=== PATIENT | female | born 1980 | race African-American/Black ===

== ENCOUNTER 2020-04-09 08:19 | Emergency (ER) | payer BC ==
[2020-04-09 08:34] VITALS: BP 118/63; PULSE 94
[2020-04-09] MEDS ORDERED: Ketorolac 15 MG/ML SDV IM ONE (08:47)
--- NOTE | 2020-04-09 09:02 | EDM.PDOC ---
ED HPI GENERAL MEDICAL PROBLEM - General Chief Complaint: General Stated Complaint: NECK PAIN Time Seen by Provider: 04/09/20 08:29 - History of Present Illness INITIAL COMMENTS - FREE TEXT/NARRATIVE: CHIEF COMPLAINT(S): Neck pain HISTORY OF PRESENT ILLNESS: This is a 40-year-old woman without any significant past medical history who comes to the emergency department with a chief complaint of neck pain. The patient states that for approximately 4 days now she has been experiencing bilateral neck pain. She states that she woke up 4 days ago and noticed the pain in her bilateral neck. She describes the pain as achy and rated 5 out of 10. She states that the pain is worse with movement. She states that it feels like muscles are spasming. She states that this has happened before and it feels similar. She states that she usually uses icy hot, massage, and ibuprofen and it usually resolves within about a week however it seems to be continuing this time. She denies any fevers or chills. She denies any IV drug use. She denies any trouble swallowing, trouble speaking, or trouble breathing. She denies any other symptoms. She denies any head injury. REVIEW OF SYSTEMS: Constitutional: Denies fever, chills. Eyes: Denies eye pain Ears, Nose, Mouth, & Throat: Denies trouble swallowing Cardiovascular: Denies chest pain Respiratory: Denies shortness of breath, stridor Gastrointestinal: Denies Nausea, vomiting, diarrhea, hematochezia. Genitourinary: Denies hematuria MSK: Positive for bilateral neck pain Neurological: Denies blurred vision numbness, tingling, weakness Psychiatric: Denies depression PAST MEDICAL HISTORY: As per history of present illness and as reviewed below otherwise noncontributory. SURGICAL HISTORY: As per history of present illness and as reviewed below otherwise noncontributory. LMP: 3 weeks ago SOCIAL HISTORY: As per history of present illness and as reviewed below otherwise noncontributory. FAMILY HISTORY: As per history of present illness and as reviewed below othe rwise noncontributory. EXAMINATION OF ORGAN SYSTEMS/BODY AREAS: Constitutional: Blood pressure is 118/63, heart rate 94, respiratory rate 18 with an oxygen saturation 98% on room air. Temperature 36.0 General: Overall well-appearing woman who is in no acute distress Psychiatric: Appropriate mood and affect. Eyes: No scleral icterus or conjunctival erythema ENMT: Moist mucous membranes. No pharyngeal erythema no posterior pharyngeal swelling. There does not appear to be any masses on the anterior or lateral neck. No stridor. Cardiovascular: Regular, rate, and rythym. No gallops, murmurs, or rubs. Bilateral upper extremity pulses symmetric and intact. No peripheral edema. No JVD. Respiratory: Lungs clear to auscultation bilaterally. No wheezes, rales, or rhonchi. Speaking in full sentences. Gastrointestinal: Soft, non-tender, non-distended. Normoactive bowel sounds Genitourinary: No suprapubic tenderness Musculoskeletal: Decreased range of motion of the neck secondary to pain.. There is bilateral paracervical muscle spasm and tenderness. No overlying skin changes. No midline cervical tenderness. Skin: No lesions or abrasions. Neurological: Alert, GCS 15 strength and sensation grossly intact in upper and lower extremities bilaterally MEDICAL DECISION MAKING AND COURSE IN THE ED WITH INTERPRETATION/REVIEW OF DIAGNOSTIC STUDIES: This is a 40-year-old woman and without any significant past medical history who comes to the emergency department with bilateral posterior neck pain and stiffness. At this time I do believe the patient is experiencing a neck strain. We will provide the patient with Toradol IM for pain relief and I discussed the use of Robaxin at home for pain relief. Also discussed with her using alternating heating pad and ice for pain relief. She is to follow-up with her primary care physician. She was given strict return precautions. She was amenable discharge at this time and had no further questions. DISPOSITION: The patient was discharged home in stable condition. The patient will follow up with PCP within 1 week CONDITION: Fair PROCEDURES: None FINAL IMPRESSION(S)/DIAGNOSES: 1. Acute bilateral paracervical muscle strain/tenderness Albert Tamayo M.D. 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 Pain Score (Numeric/FACES): 10 - Related Data Allergies Allergy/AdvReac Type Severity Reaction Status Date / Time No Known Allergies Allergy Verified 04/09/20 08:34 Home Meds: Home Meds Ibuprofen 800 mg PO BID PRN 12/20/15 [History] methocarbamoL [Robaxin-750] 1,500 mg PO TID #42 tablet 04/09/20 [Rx] Past Medical History - Past Health History Medical/Surgical History: Denies Medical/Surgical History Gastrointestinal History: Reports: Pancreatitis, Other (See Below) Other Gastrointestinal History: H.pylori (+) SVP OPERATIONS History: Reports: Other (See Below) Other SVP OPERATIONS History: "irregular menstruation" - Past Surgical History GI Surgical History: Reports: None Female Surgical History: Reports: Cervical Cryotherapy Other Female Surgeries/Procedures: 12/15/15 Social & Family History - Family History Family Medical History: No Pertinent Family History ED ROS GENERAL - Review of Systems Review Of Systems: See Below ED EXAM, GENERAL - Physical Exam Exam: See Below Course - Vital Signs Last Recorded V/S: Last Vital Signs Temp 36.0 C L 04/09/20 08:31 Pulse 94 04/09/20 08:31 Resp 18 04/09/20 08:31 BP 118/63 04/09/20 08:31 Pulse Ox 98 04/09/20 08:31 - Orders/Labs/Meds Meds: Medications Discontinued Medications Generic Name Dose Route Start Last Admin Trade Name Freq PRN Reason Stop Dose Admin Ketorolac Tromethamine 15 mg 04/09/20 08:47 04/09/20 09:11 Toradol IM 04/09/20 08:48 15 mg ONETIME ONE Administration Departure - Departure Time of Disposition: 09:00 Disposition: Home, Self-Care 01 Condition: Fair Clinical Impression: Neck muscle strain Qualifiers: Encounter type: initial encounter Qualified Code(s): S16.1XXA - Strain of muscle, fascia and tendon at neck level, initial encounter - Discharge Information *PRESCRIPTION DRUG MONITORING PROGRAM REVIEWED*: No *COPY OF PRESCRIPTION DRUG MONITORING REPORT IN PATIENT BRIAN: No Prescriptions: methocarbamoL [Robaxin-750] 1,500 mg PO TID #42 tablet Instructions: Cervical Sprain Referrals: Henrietta Daniel MD [Primary Care Provider] - Forms: ED Department Discharge Additional Instructions: The patient is informed of any results of their evaluation and diagnostic workup and all questions are answered. They are given discharge instructions and return precautions. The patient is stable for discharge. The patient states they understand and agree with the plan and that they will return if their symptoms get worse or if they have any new concerns. The following information is given to patients seen in the emergency department who are being discharged to home. This information is to outline your options for follow-up care. We provide all patients seen in our emergency department with a follow-up referral. The need for follow-up, as well as the timing and circumstances, are variable depending upon the specifics of your emergency department visit. If you don't have a primary care physician on staff, we will provide you with a referral. We always advise you to contact your personal physician following an emergency department visit to inform them of the circumstance of the visit and for follow-up with them and/or the need for any referrals to a consulting specialist. The emergency department will also refer you to a specialist when appropriate. This referral assures that you have the opportunity for follow-up care with a specialist. All of these measure are taken in an effort to provide you with optimal care, which includes your follow-up. Under all circumstances we always encourage you to contact your private physician who remains a resource for coordinating your care. When calling for follow-up care, please make the office aware that this follow-up is from your recent emergency room visit. If for any reason you are refused follow-up, please contact the [facility] Emergency Department at and asked to speak to the emergency department charge nurse. Your evaluated today on emergency basis. I do believe you have are experiencing a neck strain. Continue to use ibuprofen 3 times a day for pain. Use ice and heat alternating to the area 4 times a day or as many times as time allows. Please follow-up with your primary care physician within 2 to 3 days. Return to the emergency department for any new or worsening symptoms such as blurry vision, worsening headache, fever. [facility] [address] [place] [id number] [facility] [address] [place] [id number] Sepsis Event Note (ED) - Evaluation Sepsis Screening Result: No Definite Risk - Focused Exam Vital Signs: Vital Signs Temp Pulse Resp BP Pulse Ox 04/09/20 08:31 36.0 C L 94 18 118/63 98
== END 2020-04-09 09:35 | disposition home or self-care (01) ==
LOC: MW.ED 08:19
DX: S16.1XXA Strain of muscle, fascia and tendon at neck level, initial encounter (principal); X58.XXXA Exposure to other specified factors, initial encounter
CPT/HCPCS: 96372; 99283; J1885; 99282

== ENCOUNTER 2021-02-04 14:03 | Emergency (ER) | payer BC ==
--- NOTE | 2021-02-04 14:23 | EDM.PDOC ---
ED HPI GENERAL MEDICAL PROBLEM - General Chief Complaint: Abdominal Pain Stated Complaint: STOMACH PAIN Time Seen by Provider: 02/04/21 14:21 - History of Present Illness INITIAL COMMENTS - FREE TEXT/NARRATIVE: History of present illness: [] This patient with a history of fibroids who has a hysteroscopy scheduled for tomorrow came in because he has severe abdominal pain in the epigastrium starting 31 January and progressively getting worse. It radiates to her left flank. She is not on her menstrual period now. She says she has the pain every 3 or 4 weeks unrelated to the time of menses. The patient does not drink alc ohol and has never had a gallbladder attack ulcer or pancreatitis. Preoperative labs reviewed in the CBC and chemistries were essentially normal. A hepatic panel was not done nor do I see a urinalysis. Review of systems: As per history of present illness and below otherwise all systems reviewed and negative. Past medical history: As per history of present illness and as reviewed below otherwise noncontributory. Surgical history: As per history of present illness and as reviewed below otherwise noncontributory. Social history: No reported history of drug or alcohol abuse. Family history: As per history of present illness and as reviewed below otherwise noncontributory. Physical exam: Constitutional - well developed, well-nourished and in no acute distress HEENT - normocephalic, no evidence of trauma - external nose and mouth normal - no mass in neck and no JVD - mucosae moist EYES - full EOM, PERRL, no icterus - no evidence of inflammation, injection, or drainage Respiratory - no respiratory distress, equal bilateral expansion, lungs clear to auscultation and no abnormal lung sounds Cardiovascular - Regular Rhythm with S1 and S2 appreciated and no murmur, gallop or rub. GI -tender epigastrium. Abdomen soft without distension or organomegaly - normal bowel sounds - no guard or rebound Musculoskeletal no gross deformity of long bones or joints - no tenderness, swelling or edema Neurologic - Alert and oriented times four - CN II-XII grossly intact - motor sensory and coordination symmetrically normal Psychiatric - appropriate mood and affect with normal thought content Hematologic - No petechiae or purpura - mucosa appropriate color and sclera not pale - normal nail bed color and refill Integument - no rash or evidence of trauma - normal turgor Diagnostics: [] Therapeutics: [] Impression: [] Plan: [] Definitive disposition and diagnosis as appropriate pending reevaluation and review of above. left flank Pain Score (Numeric/FACES): 10 - Related Data Allergies Allergy/AdvReac Type Severity Reaction Status Date / Time No Known Allergies Allergy Verified 02/04/21 14:14 Home Meds: Home Meds Ibuprofen 800 mg PO BID PRN 12/20/15 [History] Baclofen 10 mg PO TID PRN 02/01/21 [History] Lidocaine 5% [Lidoderm 5%] 1 patch TOP DAILY PRN 02/01/21 [History] Multivitamin with Minerals [Multiple Vitamin] 1 tab PO DAILY 02/01/21 [History] Past Medical History - Past Health History Medical/Surgical History: Denies Medical/Surgical History HEENT History: Reports: Other (See Below) Other HEENT History: wears glasses Cardiovascular History: Reports: None Respiratory History: Reports: None Gastrointestinal History: Reports: Helicobacter Pylori Other Gastrointestinal History: some heartburn- takes TUMS Genitourinary History: Reports: None 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, 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 Other CATTLE DIPPER History: "irregular menstruation" Musculoskeletal History: Reports: Neck Pain, Chronic Other Musculoskeletal History: hx of cervical spine sprain Neurological History: Reports: None Psychiatric History: Reports: None Endocrine/Metabolic History: Reports: None Oncologic (Cancer) History: Reports: None Dermatologic History: Reports: None - Past Surgical History Head Surgeries/Procedures: Reports: None Cardiovascular Surgical History: Reports: None Respiratory Surgical History: Reports: None GI Surgical History: Reports: None Female Surgical History: Reports: Cervical Cryotherapy Other Female Surgeries/Procedures: 12/15/15 Endocrine Surgical History: Reports: None Neurological Surgical History: Reports: None Musculoskeletal Surgical History: Reports: None Oncologic Surgical History: Reports: None Dermatological Surgical History: Reports: None Social & Family History - Family History Family Medical History: No Pertinent Family History - Tobacco Use Tobacco Use Status *Q: Never Tobacco User Second Hand Smoke Exposure: No - Recreational Drug Use Recreational Drug Use: No ED ROS GENERAL - Review of Systems Review Of Systems: Comprehensive ROS is negative, except as noted in HPI. ED EXAM, GENERAL - Physical Exam Exam: See Below Free Text/Narrative:: Physical exam is in the HPI Course - Vital Signs Text/Narrative:: 1608 hrs. it was my impression after looking at the lab and evaluating the patient that her pain is probably referred pain from her pelvic complications. Discussed with Dr. Saleh and she agreed to go forth with a hysteroscopy in the morning. Last Recorded V/S: Last Vital Signs Temp 36.7 C 02/04/21 16:01 Pulse 62 02/04/21 16:01 Resp 18 02/04/21 16:01 BP 116/56 L 02/04/21 16:01 Pulse Ox 98 02/04/21 16:01 - Orders/Labs/Meds Orders: Active Orders 24 hr Category Date Time Status Sodium Chloride 0.9% [Saline Flush] Med 02/04/21 14:26 Active 10 ml FLUSH ASDIRECTED PRN Sodium Chloride 0.9% [Saline Flush] Med 02/04/21 14:26 Active 2.5 ml FLUSH ASDIRECTED PRN Saline Lock Insert [OM.PC] Stat Oth 02/04/21 14:26 Ordered Medication Orders Sodium Chloride (Sodium Chloride 0.9% 10 Ml Syringe) 10 ml FLUSH ASDIRECTED PRN PRN Reason: Keep Vein Open Last Admin: 02/04/21 15:00 Dose: 10 ml Documented by: JOIE Sodium Chloride (Sodium Chloride 0.9% 2.5 Ml Syringe) 2.5 ml FLUSH ASDIRECTED PRN PRN Reason: Keep Vein Open Last Admin: 02/04/21 15:00 Dose: 2.5 ml Documented by: JOIE Labs: Laboratory Tests 02/04/21 02/04/21 Range/Units 11:35 14:50 Total Bilirubin 0.4 (0.2-1.0) mg/dL Direct Bilirubin 0.10 (0.0-0.5) mg/dL Indirect Bilirubin 0.30 AST 24 (15-37) IU/L ALT 32 (14-63) IU/L Alkaline Phosphatase 88 (46-116) U/L Total Protein 7.8 (6.4-8.2) g/dL Albumin 3.7 (3.4-5.0) g/dL Globulin 4.1 H (2.6-4.0) g/dL Albumin/Globulin Ratio 0.9 (0.9-1.6) Urine Color YELLOW Urine Appearance CLEAR Urine pH 7.0 (5.0-8.0) Ur Specific [place] 1.020 (1.001-1.035) Urine Protein NEGATIVE (NEGATIVE) mg/dL Urine Glucose (UA) NEGATIVE (NEGATIVE) mg/dL Urine Ketones NEGATIVE (NEGATIVE) mg/dL Urine Occult Blood NEGATIVE (NEGATIVE) Urine Nitrite NEGATIVE (NEGATIVE) Urine Bilirubin NEGATIVE (NEGATIVE) Urine Urobilinogen 0.2 (<2.0) EU/dL Ur Leukocyte Esterase NEGATIVE (NEGATIVE) Meds: Medications Generic Name Dose Route Start Last Admin Trade Name Freq PRN Reason Stop Dose Admin Sodium Chloride 10 ml 02/04/21 14:02/04/21 15:00 Sodium Chloride 0.9% 10 Ml Syringe FLUSH 10 ml ASDIRECTED PRN Administration Keep Vein Open Sodium Chloride 2.5 ml 02/04/21 14:02/04/21 15:00 Sodium Chloride 0.9% 2.5 Ml Syringe FLUSH 2.5 ml ASDIRECTED PRN Administration Keep Vein Open Departure - Departure Time of Disposition: 16:08 Disposition: Home, Self-Care 01 Condition: Good Clinical Impression: Abdominal pain - Discharge Information Instructions: Abdominal Pain, Adult, [id number], Uterine Fibroids, [id number] Referrals: PCP,None [Primary Care Provider] - Forms: ED Department Discharge Additional Instructions: Follow the instructions you were provided to have the surgery tomorrow so that y ou can then see if that relieves her pain. [facility] [address] [place] [id number] [facility] [address] [place] [address] The following information is given to patients seen in the emergency department who are being discharged to home. This information is to outline your options for follow-up care. We provide all patients seen in our emergency department with a follow-up referral. The need for follow-up, as well as the timing and circumstances, are variable depending upon the specifics of your emergency department visit. If you don't have a primary care physician on staff, we will provide you with a referral. We always advise you to contact your personal physician following an emergency department visit to inform them of the circumstance of the visit and for follow-up with them and/or the need for any referrals to a consulting specialist. The emergency department will also refer you to a specialist when appropriate. This referral assures that you have the opportunity for follow-up care with a specialist. All of these measure are taken in an effort to provide you with optimal care, which includes your follow-up. Under all circumstances we always encourage you to contact your private physician who remains a resource for coordinating your care. When calling for follow-up care, please make the office aware that this follow-up is from your recent emergency room visit. If for any reason you are refused follow-up, please contact the [facility] Emergency Department at and asked to speak to the emergency department charge nurse. Sepsis Event Note (ED) - Evaluation Sepsis Screening Result: No Definite Risk - Focused Exam Vital Signs: Vital Signs Temp Pulse Resp BP Pulse Ox 02/04/21 16:01 36.7 C 62 18 116/56 L 98 02/04/21 15:00 18 132/71 98 02/04/21 14:11 36.2 C 96 18 112/71 99 - My Orders Last 24 Hours: My Active Orders 02/04/21 14:26 Sodium Chloride 0.9% [Saline Flush] 10 ml FLUSH ASDIRECTED PRN Sodium Chloride 0.9% [Saline Flush] 2.5 ml FLUSH ASDIRECTED PRN Saline Lock Insert [OM.PC] Stat - Assessment/Plan Last 24 Hours: My Active Orders 02/04/21 14:26 Sodium Chloride 0.9% [Saline Flush] 10 ml FLUSH ASDIRECTED PRN Sodium Chloride 0.9% [Saline Flush] 2.5 ml FLUSH ASDIRECTED PRN Saline Lock Insert [OM.PC] Stat
[2021-02-04] MEDS ORDERED: Sodium Chloride 0.9% 10 ML Syringe FLUSH PRN (14:26)
[2021-02-04] MEDS ORDERED: Sodium Chloride 0.9% 2.5 ML Syringe FLUSH PRN (14:26)
[2021-02-04 14:43] LABS: BILIRUBIN INDIRECT 0.3
[2021-02-04 16:33] VITALS: BP 110/59; PULSE 78
== END 2021-02-04 16:33 | disposition home or self-care (01) ==
LOC: MW.ED 14:03
DX: R10.13 Epigastric pain (principal)
CPT/HCPCS: 36415; 80076; 81003; 99284

== ENCOUNTER 2021-02-05 07:32 | Day surgery (SDC) | payer BC, OTHER ==
[2021-02-04 14:01] LABS: BLOOD UREA NITROGEN,BUN 12 mg/dL (7.0-18.0); CARBON DIOXIDE,CO2 27.4 mmol/L (21.0-32.0); CHLORIDE,CL 102 mmol/L (98-107); GLUCOSE RANDOM 97 mg/dL (74-106); POTASSIUM,K 4.6 mmol/L (3.5-5.1); SODIUM,NA 141 mmol/L (136-145)
[~2021-02-05 07:32] MED LIST: Albuterol 0.083% 2.5 MG/3 ML Neb Soln NEB PRN; HYDROmorphone 1 MG/ML Syringe IVPUSH PRN; Metoclopramide 10 MG/2 ML SDV IVPUSH PRN; Morphine 2 MG/ML SYRINGE IVPUSH PRN; Naloxone 0.4 MG/ML SDV IVPUSH PRN; Ondansetron 4 MG/2 ML SDV IVPUSH PRN; fentaNYL 100 MCG/2 ML SDV IVPUSH PRN
--- NOTE | 2021-02-05 07:41 | PCM.PREANE ---
Preanesthetic Assessment - Anesthesia/Transfusion/Family Hx Anesthesia History: Prior Anesthesia Without Reaction Transfusion History: No Prior Transfusion(s) - Review of Systems General: No Symptoms Pulmonary: No Symptoms Cardiovascular: No Symptoms Gastrointestinal: No Symptoms Neurological: No Symptoms Other: Reports: None - Physical Assessment NPO Status Date: 02/05/21 NPO Status Time: 00:00 Height: 5 ft 3.75 in Weight: 150 lb ASA Class: 2 Mental Status: Alert & Oriented x3 Airway Class: Mallampati = 2 Dentition: Reports: Normal Dentition Thyro-Mental Finger Breadths: 3 Mouth Opening Finger Breadths: 3 ROM/Head Extension: Full Lungs: Clear to Auscultation, Normal Respiratory Effort Cardiovascular: Regular Rate, Regular Rhythm - Lab Values: Laboratory Last Values WBC 4.67 K/uL (4.0-11.0) 02/04/21 11:35 RBC 4.74 M/uL (4.30-5.90) 02/04/21 11:35 Hgb 13.0 g/dL (12.0-16.0) 02/04/21 11:35 Hct 36.7 % (36.0-46.0) 02/04/21 11:35 MCV 77.4 fL (80.0-98.0) L 02/04/21 11:35 MCH 27.4 pg (27.0-32.0) 02/04/21 11:35 MCHC 35.4 g/dL (31.0-37.0) 02/04/21 11:35 RDW Std Deviation 45.1 fl (28.0-62.0) 02/04/21 11:35 RDW Coeff of Basil 16 % (11.0-15.0) H 02/04/21 11:35 Plt Count 351 K/uL (150-400) 02/04/21 11:35 MPV 11.10 fL (7.40-12.00) 02/04/21 11:35 Sodium 141 mmol/L (136-145) 02/04/21 11:35 Potassium 4.6 mmol/L (3.5-5.1) 02/04/21 11:35 Chloride 102 mmol/L (98-107) 02/04/21 11:35 Carbon Dioxide 27.4 mmol/L (21.0-32.0) 02/04/21 11:35 BUN 12 mg/dL (7.0-18.0) 02/04/21 11:35 Creatinine 1.0 mg/dL (0.6-1.0) 02/04/21 11:35 Est Cr Clr Drug Dosing 64.54 mL/min 02/04/21 11:35 Estimated GFR (MDRD) > 60.0 ml/min 02/04/21 11:35 Glucose 97 mg/dL (74-106) 02/04/21 11:35 Calcium 9.3 mg/dL (8.5-10.1) 02/04/21 11:35 HCG, Quant < 1.0 mIU/mL 02/04/21 11:35 Blood Type B POSITIVE 02/04/21 11:35 Antibody Screen NEGATIVE 02/04/21 11:35 - Allergies Allergies/Adverse Reactions: Allergies Allergy/AdvReac Type Severity Reaction Status Date / Time No Known Allergies Allergy Verified 02/04/21 14:14 - Acknowledgements Anesthesia Type Planned: General Anesthesia Pt an Appropriate Candidate for the Planned Anesthesia: Yes Alternatives and Risks of Anesthesia Discussed w Pt/Guardian: Yes Pt/Guardian Understands and Agrees with Anesthesia Plan: Yes PreAnesthesia Questionnaire - Past Health History Medical/Surgical History: Denies Medical/Surgical History HEENT History: Reports: Other (See Below) Other HEENT History: wears glasses Cardiovascular History: Reports: None Respiratory History: Reports: None Gastrointestinal History: Reports: Helicobacter Pylori Other Gastrointestinal History: some heartburn- takes TUMS Genitourinary History: Reports: None 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, 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 Other OB/BYN History: "irregular menstruation" Musculoskeletal History: Reports: Neck Pain, Chronic Other Musculoskeletal History: hx of cervical spine sprain Neurological History: Reports: None Psychiatric History: Reports: None Endocrine/Metabolic History: Reports: None Oncologic (Cancer) History: Reports: None Dermatologic History: Reports: None - Past Surgical History Head Surgeries/Procedures: Reports: None Cardiovascular Surgical History: Reports: None Respiratory Surgical History: Reports: None GI Surgical History: Reports: None Female Surgical History: Reports: Cervical Cryotherapy Other Female Surgeries/Procedures: 12/15/15 Endocrine Surgical History: Reports: None Neurological Surgical History: Reports: None Musculoskeletal Surgical History: Reports: None Oncologic Surgical History: Reports: None Dermatological Surgical History: Reports: None - SUBSTANCE USE Tobacco Use Status *Q: Never Tobacco User Recreational Drug Use History: No - HOME MEDS Home Medications: Home Meds Ibuprofen 800 mg PO BID PRN 12/20/15 [History] Baclofen 10 mg PO TID PRN 02/01/21 [History] Lidocaine 5% [Lidoderm 5%] 1 patch TOP DAILY PRN 02/01/21 [History] Multivitamin with Minerals [Multiple Vitamin] 1 tab PO DAILY 02/01/21 [History] - CURRENT (IN HOUSE) MEDS Current Meds: Current Medications Albuterol (Albuterol 0.083% 2.5 Mg/3 Ml Neb Soln) 2.5 mg NEB ONETIME PRN PRN Reason: Wheezing Droperidol (Droperidol 5 Mg/2 Ml Sdv) 0.625 mg IVPUSH ONETIME PRN PRN Reason: Nausea/Vomiting Fentanyl (Fentanyl 100 Mcg/2 Ml Sdv) 50 mcg IVPUSH Q5M PRN PRN Reason: Pain (mild 1-3) Hydromorphone HCl (Hydromorphone 1 Mg/Ml Syringe) 1 mg IVPUSH Q10M PRN PRN Reason: Pain (moderate 4-6) Metoclopramide HCl (Metoclopramide 10 Mg/2 Ml Sdv) 10 mg IVPUSH ONETIME PRN PRN Reason: Nausea/Vomiting Morphine Sulfate (Morphine 2 Mg/Ml Syringe) 2 mg IVPUSH Q10M PRN PRN Reason: Pain (severe 7-10) Naloxone HCl (Naloxone 0.4 Mg/Ml Sdv) 0.1 mg IVPUSH ASDIRECTED PRN PRN Reason: Respiratory Depression Ondansetron HCl (Ondansetron 4 Mg/2 Ml Sdv) 4 mg IVPUSH ONETIME PRN PRN Reason: Nausea/Vomiting
[2021-02-05] MEDS ORDERED: Sodium Chloride 0.9% 10 ML SDV IV PRN (08:01)
[2021-02-05] MEDS ORDERED: Sodium Chloride 0.9% 2.5 ML Syringe FLUSH PRN (08:01)
[2021-02-05] MEDS ORDERED: Sodium Chloride 0.9% 10 ML Syringe FLUSH PRN (08:01)
[2021-02-05] MEDS ORDERED: Lactated Ringers 1,000 ML IV SCH (08:30)
[2021-02-05] MEDS ORDERED: Dexamethasone 4 MG/ML 5 ML MDV ONE (08:47)
[2021-02-05] MEDS ORDERED: Ondansetron 4 MG/2 ML SDV ONE (08:47)
[2021-02-05] MEDS ORDERED: Propofol 200 MG/20 ML SDV ONE (08:48)
[2021-02-05] MEDS ORDERED: fentaNYL 100 MCG/2 ML SDV ONE (08:48)
[2021-02-05] MEDS ORDERED: Ketorolac 30 MG/ML SDV ONE (09:26)
--- NOTE | 2021-02-05 09:42 | PCM.OPNOTE ---
- General Post-Op/Procedure Note Date of Surgery/Procedure: 02/05/21 Operative Procedure(s): Operative hysteroscopy with myomectomy x 2. D&C Findings: Two intracavitary lesions, one fundal midline, the other mid fundus right side Pre Op Diagnosis: Abnormal uterine bleeding. Uterine fibroids Post-Op Diagnosis: Same Anesthesia Technique: General LMA Primary Surgeon: Mona Saleh Fluid Replacement, Intraop: 400 EBL in mLs: 5 Complications: none known Condition: Good Free Text/Narrative:: Dictation [id number]
--- NOTE | 2021-02-05 09:43 | PCM.POSTAN ---
POST ANESTHESIA ASSESSMENT - MENTAL STATUS Mental Status: Alert, Oriented - VITAL SIGNS Vital Signs: Last Vital Signs Temp 97.0 F 02/05/21 07:35 Pulse 84 02/05/21 07:35 Resp 15 02/05/21 07:35 BP 123/77 02/05/21 07:35 Pulse Ox 98 02/05/21 07:35 - RESPIRATORY Respiratory Status: Respiratory Rate WNL, Airway Patent, O2 Saturation Stable - CARDIOVASCULAR CV Status: Pulse Rate WNL, Blood Pressure Stable - GASTROINTESTINAL GI Status: No Symptoms - POST OP HYDRATION Hydration Status: Adequate & Stable
--- NOTE | 2021-02-05 09:43 | PCM48HPAN ---
Post Anesthesia Note - EVALUATION WITHIN 48HRS OF ANESTHETIC Vital Signs in Normal Range: Yes Patient Participated in Evaluation: Yes Respiratory Function Stable: Yes Airway Patent: Yes Cardiovascular Function Stable: Yes Hydration Status Stable: Yes Pain Control Satisfactory: Yes Nausea and Vomiting Control Satisfactory: Yes Mental Status Recovered: Yes Vital Signs: Last Vital Signs Temp 97.0 F 02/05/21 07:35 Pulse 84 02/05/21 07:35 Resp 15 02/05/21 07:35 BP 123/77 02/05/21 07:35 Pulse Ox 98 02/05/21 07:35
[2021-02-05 11:01] VITALS: BP 118/64; PULSE 64
--- NOTE | 2021-02-05 16:24 | OR ---
SURGEON: Mona Saleh M.D. DATE OF PROCEDURE: 02/05/2021 PREOPERATIVE DIAGNOSES: 1. Abnormal uterine bleeding. 2. Uterine fibroids. POSTOPERATIVE DIAGNOSES: 1. Abnormal uterine bleeding. 2. Uterine fibroids. PROCEDURES: 1. Operative hysteroscopy with myomectomy x2. 2. Dilation and curettage. PRIMARY SURGEON: Mona Saleh MD ANESTHESIA: General LMA. ESTIMATED BLOOD LOSS: 5 mL. COMPLICATIONS: None known. FLUIDS: 400 mL of crystalloid. DISPOSITION: The patient to PACU, stable. FLUID DEFICIT: 570 mL of saline. PROCEDURE DETAILS: Robert is a 40-year-old G0 who presents today for scheduled hysteroscopy given her abnormal uterine bleeding and known uterine fibroids. It is suspected that she has most likely an endometrial lesion. Risks of procedure have been discussed, and proper consent obtained. The patient was taken to the operating room, underwent general LMA in dorsal spine position, was then placed in modified dorsal lithotomy position, was prepped and draped in the usual sterile fashion. SCDs to lower extremity. Bladder was drained. Time-out was performed. Speculum was introduced in the vagina. Anterior lip of cervix was grasped with Allis clamps. The cervix was gently dilated to 6 mm. The MyoSure scope was now introduced using normal saline as distention media. I was able to visualize the uterine cavity. There were 2 endometrial lesions noted, one was at the fundus midline and the other was right-sided mid fundal. Therefore, the MyoSure resectoscope was gently introduced, and the fundal lesion was resected followed by the right mid fundal lesion. Photographs taken. After felt that the lesions were appropriately removed from the cavity, the cavity now appears normal. The MyoSure was now removed from the uterine cavity following along endocervical canal, through the cervix, and no other lesions were visualized. Gentle curettage was now performed. Specimens to Pathology. All instruments removed from the vagina and hemostasis evident. Sponge and instrument counts were correct x2. Fluid deficit was 570 mL at the end of the case. JOCELYNN / DENISE /[id number]
== END 2021-02-05 11:30 | disposition home or self-care (01) ==
LOC: MW.SDS 07:32
PROVIDERS: ATTEND Obstetrics & Gynecology
DX: D25.0 Submucous leiomyoma of uterus (principal); Z79.899 Other long term (current) drug therapy; Z98.890 Other specified postprocedural states
CPT/HCPCS: 36415; 58561; 80048; 84702; 85027; 86850; 86900; 86901; J0131; J1100; J1885; J2405; J2704; J3010; J7120; 00952; 88305

== ENCOUNTER 2021-08-27 08:12 | Day surgery (SDC) | payer BC ==
[~2021-08-27 08:12] MED LIST changes: -Albuterol 0.083% 2.5 MG/3 ML Neb Soln NEB PRN; -HYDROmorphone 1 MG/ML Syringe IVPUSH PRN; +Lactated Ringers 1,000 ML IV SCH; +Lidocaine 2% 100 MG/5 ML Syringe ONE; -Metoclopramide 10 MG/2 ML SDV IVPUSH PRN; -Morphine 2 MG/ML SYRINGE IVPUSH PRN; -Naloxone 0.4 MG/ML SDV IVPUSH PRN; -Ondansetron 4 MG/2 ML SDV IVPUSH PRN; +Ondansetron 4 MG/2 ML SDV ONE; +Propofol 200 MG/20 ML SDV ONE; -fentaNYL 100 MCG/2 ML SDV IVPUSH PRN; +fentaNYL 100 MCG/2 ML SDV ONE
[2021-08-27 11:22] VITALS: BP 113/64; PULSE 63
== END 2021-08-27 10:35 | disposition home or self-care (01) ==
LOC: MW.SDS 08:12
PROVIDERS: ATTEND Surgery
DX: K31.89 Other diseases of stomach and duodenum (principal); K59.00 Constipation, unspecified; G89.29 Other chronic pain; Z79.899 Other long term (current) drug therapy; Z98.890 Other specified postprocedural states
CPT/HCPCS: 43239; 81025; J2405; J2704; J3010; J7120; 00731

== ENCOUNTER 2021-11-29 10:18 | Emergency (ER) | payer BC ==
[2021-11-29] MEDS ORDERED: Sodium Chloride 0.9% 10 ML Syringe FLUSH PRN (10:28)
[2021-11-29] MEDS ORDERED: Sodium Chloride 0.9% 2.5 ML Syringe FLUSH PRN (10:28)
[2021-11-29] MEDS ORDERED: Ondansetron 4 MG/2 ML SDV IVPUSH ONE (11:00)
[2021-11-29] MEDS ORDERED: Morphine 4 MG/ML VIAL IVPUSH ONE (11:00)
[2021-11-29 11:56] LABS: CARBON DIOXIDE,CO2 26.3 mmol/L (21.0-32.0); POTASSIUM,K 4.2 mmol/L (3.5-5.1)
[2021-11-29] MEDS ORDERED: Magnesium Citrate Solution 296 ML Bottle PO ONE (14:04)
[2021-11-29 14:30] VITALS: BP 112/70; PULSE 88
== END 2021-11-29 14:30 | disposition home or self-care (01) ==
LOC: MW.ED 10:18
DX: K59.00 Constipation, unspecified (principal); K21.9 Gastro-esophageal reflux disease without esophagitis; Z79.899 Other long term (current) drug therapy
CPT/HCPCS: 36415; 74176; 80053; 81003; 83690; 84703; 85025; 96374; 96375; 99284; A9270; J2270; J2405; J3490

== ENCOUNTER 2021-12-27 10:00 | Emergency (ER) | payer BC ==
[2021-12-27] MEDS ORDERED: Sodium Chloride 0.9% 10 ML Syringe FLUSH PRN (11:55)
[2021-12-27] MEDS ORDERED: Sodium Chloride 0.9% 2.5 ML Syringe FLUSH PRN (11:55)
[2021-12-27] MEDS ORDERED: Morphine 4 MG/ML VIAL IVPUSH ONE (12:40)
[2021-12-27] MEDS ORDERED: Ondansetron 4 MG/2 ML SDV IVPUSH ONE (12:40)
[2021-12-27 12:50] LABS: CARBON DIOXIDE,CO2 28.8 mmol/L (21.0-32.0); POTASSIUM,K 4.3 mmol/L (3.5-5.1)
[2021-12-27 15:45] VITALS: BP 115/73; PULSE 66
== END 2021-12-27 15:44 | disposition home or self-care (01) ==
LOC: MW.ED 10:00
DX: U07.1 COVID-19 (principal); N83.202 Unspecified ovarian cyst, left side
CPT/HCPCS: 36415; 76830; 80053; 81003; 83690; 84703; 85025; 87635; 96374; 96375; 99284; J2270; J2405; J3490; U0002

== ENCOUNTER 2021-12-29 10:37 | Emergency (ER) | payer BC ==
[2021-12-29] MEDS ORDERED: Sodium Chloride 0.9% 1,000 ML IV ONE (13:08)
[2021-12-29] MEDS ORDERED: HYDROmorphone 1 MG/ML Syringe IVPUSH ONE (13:08)
[2021-12-29] MEDS ORDERED: Ondansetron 4 MG/2 ML SDV IVPUSH ONE (13:08)
[2021-12-29 14:04] LABS: CARBON DIOXIDE,CO2 28.9 mmol/L (21.0-32.0); POTASSIUM,K 3.9 mmol/L (3.5-5.1)
[2021-12-29 16:54] LABS: C. TRACHOMATIS BY PCR NOT DETECTED; N. GONORRHOEAE BY PCR NOT DETECTED
[2021-12-29 21:11] VITALS: BP 108/71; PULSE 63
== END 2021-12-29 16:40 | disposition home or self-care (01) ==
LOC: MW.ED 10:37
DX: N83.202 Unspecified ovarian cyst, left side (principal)
CPT/HCPCS: 36415; 76830; 80053; 83690; 85025; 87480; 87491; 87510; 87591; 87660; 96361; 96374; 96375; 99284; J1170; J2405; J7030; 99283

== ENCOUNTER 2022-09-13 13:11 | Emergency (ER) | payer BC ==
[2022-09-13 13:46] VITALS: BP 113/68; PULSE 82
== END 2022-09-13 16:33 | disposition left against medical advice (07) ==
LOC: MW.ED 13:11
DX: Z53.21 Procedure and treatment not carried out due to patient leaving prior to being seen by health care provider (principal)

== ENCOUNTER 2023-05-19 08:37 | Emergency (ER) | payer BC ==
[2023-05-19] MEDS ORDERED: Ondansetron 4 MG/2 ML SDV IVPUSH ONE (09:04)
[2023-05-19] MEDS ORDERED: Ketorolac 30 MG/ML SDV IVPUSH ONE (09:04)
[2023-05-19] MEDS ORDERED: Sodium Chloride 0.9% 10 ML Syringe FLUSH PRN (09:04)
[2023-05-19] MEDS ORDERED: Sodium Chloride 0.9% 1,000 ML IV ONE (09:04)
[2023-05-19] MEDS ORDERED: Sodium Chloride 0.9% 2.5 ML Syringe FLUSH PRN (09:04)
[2023-05-19 09:17] LABS: APPEARANCE,URINE CLEAR; BILIRUBIN,URINE NEGATIVE (NEGATIVE); COLOR,URINE YELLOW; GLUCOSE,URINE NEGATIVE (NEGATIVE); KETONES,URINE NEGATIVE (NEGATIVE); LEUKOCYTE ESTERASE,URINE NEGATIVE (NEGATIVE); NITRITE,URINE NEGATIVE (NEGATIVE); OCCULT BLOOD,URINE NEGATIVE (NEGATIVE); PH,URINE 5.5 (5.0-8.0); PROTEIN,URINE NEGATIVE (NEGATIVE); UROBILINOGEN,URINE 0.2 EU/dL (<2.0)
[2023-05-19 09:48] LABS: BASOPHILS ABSOLUTE AUTO 0.01 K/uL (0.00-0.20); BASOPHILS PERCENT AUTO 0.2 % (0.0-1.0); EOSINOPHILS ABSOLUTE AUTO 0.04 K/uL (0.00-0.45); EOSINOPHILS PERCENT AUTO 0.6 % (0.0-6.0); HEMATOCRIT 36.4 % (37.0-47.0); HEMOGLOBIN 12.9 g/dL (12.0-16.0); IMMATURE GRAN ABSOLUTE AUTO 0.01 K/uL (0.00-0.05); IMMATURE GRAN PERCENT AUTO 0.2 % (0.0-0.4); LYMPHOCYTES ABSOLUTE AUTO 1.82 K/uL (1.00-4.80); LYMPHOCYTES PERCENT AUTO 29.4 % (24.0-44.0); MEAN CORPUSCULAR HEMOGLOBIN 28.1 pg (28.0-32.0); MEAN CORPUSCULAR HGB CONC 35.4 g/dL (32.0-36.0); MEAN CORPUSCULAR VOLUME 79.3 fL (83.0-99.0); MEAN PLATELET VOLUME 11.1 fL (9.4-12.3); MONOCYTES PERCENT AUTO 9.7 % (0.0-8.0); NEUTROPHILS ABSOLUTE AUTO 3.72 K/uL (1.80-7.70); NEUTROPHILS PERCENT AUTO 59.9 % (41.0-71.0); PLATELET COUNT,PLT 301 K/uL (150-400); RED BLOOD CELL COUNT 4.59 M/uL (4.10-5.30)
[2023-05-19 10:18] LABS: A/G RATIO 0.9 (0.9-1.6); ALBUMIN 3.4 g/dL (3.4-5.0); BILIRUBIN TOTAL 0.3 mg/dL (0.2-1.0); CALCIUM 9.3 mg/dL (8.5-10.1); CARBON DIOXIDE,CO2 27.2 mmol/L (21.0-32.0); EST CRCL DRUG DOSING (CG) 60.62 mL/min; PROTEIN TOTAL,TP 7.1 g/dL (6.4-8.2)
[2023-05-19 12:26] VITALS: BP 106/61; PULSE 67
== END 2023-05-19 12:25 | disposition home or self-care (01) ==
LOC: MW.ED 08:37
DX: N83.202 Unspecified ovarian cyst, left side (principal)
CPT/HCPCS: 36415; 74176; 76830; 80053; 81003; 81025; 83690; 85025; 96361; 96374; 96375; 99284; J1885; J2405; J3490; J7030

== ENCOUNTER 2024-03-29 17:59 | Emergency (ER) | payer BC ==
[2024-03-29 19:28] VITALS: BP 122/67; PULSE 78
[2024-03-29 19:55] LABS: BASOPHILS ABSOLUTE AUTO 0.01 K/uL (0.00-0.20); BASOPHILS PERCENT AUTO 0.2 % (0.0-1.0); EOSINOPHILS ABSOLUTE AUTO 0.06 K/uL (0.00-0.45); EOSINOPHILS PERCENT AUTO 0.9 % (0.0-6.0); HEMATOCRIT 35.1 % (37.0-47.0); HEMOGLOBIN 12.5 g/dL (12.0-16.0); IMMATURE GRAN ABSOLUTE AUTO 0.01 K/uL (0.00-0.05); IMMATURE GRAN PERCENT AUTO 0.2 % (0.0-0.4); LYMPHOCYTES ABSOLUTE AUTO 1.76 K/uL (1.00-4.80); LYMPHOCYTES PERCENT AUTO 27.5 % (24.0-44.0); MEAN CORPUSCULAR HEMOGLOBIN 28.1 pg (28.0-32.0); MEAN CORPUSCULAR HGB CONC 35.6 g/dL (32.0-36.0); MEAN CORPUSCULAR VOLUME 78.9 fL (83.0-99.0); MEAN PLATELET VOLUME 10.6 fL (9.4-12.3); MONOCYTES ABSOLUTE AUTO 0.53 K/uL (0.00-0.80); MONOCYTES PERCENT AUTO 8.3 % (0.0-8.0); NEUTROPHILS ABSOLUTE AUTO 4.02 K/uL (1.80-7.70); NEUTROPHILS PERCENT AUTO 62.9 % (41.0-71.0); PLATELET COUNT,PLT 267 K/uL (150-400); RED BLOOD CELL COUNT 4.45 M/uL (4.10-5.30); WHITE BLOOD CELL COUNT,WBC 6.39 K/uL (3.9-11.3)
[2024-03-29 20:33] LABS: A/G RATIO 0.9 (0.9-1.6); ALANINE AMINOTRANSFERASE,ALT 32 IU/L (14-63); ALBUMIN 3.4 g/dL (3.4-5.0); ALKALINE PHOSPHATASE 85 U/L (46-116); ASPARTATE AMNIOTRANSFERASE,AST 22 IU/L (15-37); BILIRUBIN TOTAL 0.4 mg/dL (0.2-1.0); BLOOD UREA NITROGEN,BUN 17 mg/dL (7.0-18.0); CALCIUM 8.8 mg/dL (8.5-10.1); CHLORIDE,CL 106 mmol/L (98-107); CREATININE 1.1 mg/dL (0.6-1.0); GLUCOSE RANDOM 85 mg/dL (74-106); POTASSIUM,K 4.1 mmol/L (3.5-5.1); SODIUM,NA 140 mmol/L (136-145)
[2024-03-29 20:37] LABS: ESTIMATED GFR 64 mL/min (>60)
[2024-03-29] MEDS: Ondansetron 4 MG Tab.DIS PO ONE (20:46)
[2024-03-29] MEDS: Acetaminophen/HYDROcodone 325-5 MG Tab PO ONE (20:46)
[2024-03-29 23:27] LABS: APPEARANCE,URINE CLEAR; BILIRUBIN,URINE NEGATIVE (NEGATIVE); COLOR,URINE YELLOW; GLUCOSE,URINE NEGATIVE (NEGATIVE); KETONES,URINE NEGATIVE (NEGATIVE); LEUKOCYTE ESTERASE,URINE NEGATIVE (NEGATIVE); NITRITE,URINE NEGATIVE (NEGATIVE); OCCULT BLOOD,URINE MODERATE (NEGATIVE); PROTEIN,URINE NEGATIVE (NEGATIVE); UROBILINOGEN,URINE 0.2 EU/dL (<2.0)
[2024-03-29 23:31] LABS: BACTERIA,URINE FEW (NEGATIVE); EPITHELIAL CELLS,URINE FEW (NONE-FEW); WBC,URINE 0-2 (0-5/HPF)
== END 2024-03-29 23:47 | disposition home or self-care (01) ==
LOC: MW.ED 17:59
DX: N83.202 Unspecified ovarian cyst, left side (principal); Z79.899 Other long term (current) drug therapy; Z75.8 Other problems related to medical facilities and other health care
CPT/HCPCS: 36415; 76856; 80053; 81001; 81025; 85025; 99284; A9270

== ENCOUNTER 2024-04-03 10:27 | Emergency (ER) | payer BC ==
[2024-04-03 11:38] LABS: HEMATOCRIT 34.7 % (37.0-47.0); HEMOGLOBIN 12.5 g/dL (12.0-16.0); MEAN CORPUSCULAR HEMOGLOBIN 28.2 pg (28.0-32.0); MEAN CORPUSCULAR VOLUME 78.3 fL (83.0-99.0); MEAN PLATELET VOLUME 10.8 fL (9.4-12.3); PLATELET COUNT,PLT 255 K/uL (150-400); RED BLOOD CELL COUNT 4.43 M/uL (4.10-5.30)
[2024-04-03] MEDS: Morphine 4 MG/ML Syringe IVPUSH STA (11:40)
[2024-04-03] MEDS: Ondansetron 4 MG/2 ML SDV IVPUSH STA (11:40)
[2024-04-03 12:12] LABS: A/G RATIO 0.9 (0.9-1.6); ALBUMIN 3.6 g/dL (3.4-5.0); BILIRUBIN TOTAL 0.5 mg/dL (0.2-1.0); CALCIUM 9.3 mg/dL (8.5-10.1); CARBON DIOXIDE,CO2 28.4 mmol/L (21.0-32.0); CREATININE 0.9 mg/dL (0.6-1.0); EST CRCL DRUG DOSING (CG) 66.67 mL/min; POTASSIUM,K 4.4 mmol/L (3.5-5.1); PROTEIN TOTAL,TP 7.4 g/dL (6.4-8.2)
[2024-04-03 12:47] LABS: LYMPHOCYTES ABSOLUTE MAN 2.34 K/uL (1.00-4.80); LYMPHOCYTES PERCENT MAN 33 % (24-44); MONOCYTES PERCENT MAN 7 % (0-8); SEG NEUTROPHILS ABSOLUTE MAN 4.26 K/uL (1.80-7.70); SEG NEUTROPHILS PERCENT MAN 60 % (41-71)
[2024-04-03 13:19] LABS: APPEARANCE,URINE CLEAR; BILIRUBIN,URINE NEGATIVE (NEGATIVE); COLOR,URINE YELLOW; GLUCOSE,URINE NEGATIVE (NEGATIVE); KETONES,URINE NEGATIVE (NEGATIVE); LEUKOCYTE ESTERASE,URINE NEGATIVE (NEGATIVE); NITRITE,URINE NEGATIVE (NEGATIVE); OCCULT BLOOD,URINE NEGATIVE (NEGATIVE); PH,URINE 5.5 (5.0-8.0); PROTEIN,URINE NEGATIVE (NEGATIVE); UROBILINOGEN,URINE 0.2 EU/dL (<2.0)
[2024-04-03 17:02] VITALS: BP 99/58; PULSE 98
== END 2024-04-03 17:02 | disposition home or self-care (01) ==
LOC: MW.ED 10:27
DX: N83.202 Unspecified ovarian cyst, left side (principal); Z75.8 Other problems related to medical facilities and other health care; Z79.899 Other long term (current) drug therapy
CPT/HCPCS: 36415; 74177; 76856; 80053; 81003; 83690; 84703; 85025; 96374; 96375; 99284; J2270; J2405

== ENCOUNTER 2024-04-23 12:22 | Emergency (ER) | payer BC ==
[2024-04-23 13:14] VITALS: BP 122/74; PULSE 76
[2024-04-23] MEDS: Acetaminophen/HYDROcodone 325-5 MG Tab PO ONE (13:32)
[2024-04-23 13:34] LABS: HEMATOCRIT 35.4 % (37.0-47.0); HEMOGLOBIN 12.7 g/dL (12.0-16.0); MEAN CORPUSCULAR HEMOGLOBIN 28.3 pg (28.0-32.0); MEAN CORPUSCULAR HGB CONC 35.9 g/dL (32.0-36.0); MEAN CORPUSCULAR VOLUME 78.8 fL (83.0-99.0); RED BLOOD CELL COUNT 4.49 M/uL (4.10-5.30); WHITE BLOOD CELL COUNT,WBC 5.33 K/uL (3.9-11.3)
[2024-04-23 13:51] LABS: EOSINOPHILS ABSOLUTE MAN 0.05 K/uL (0.00-0.45); EOSINOPHILS PERCENT MAN 1 % (0-6); LYMPHOCYTES ABSOLUTE MAN 2.03 K/uL (1.00-4.80); LYMPHOCYTES PERCENT MAN 38 % (24-44); MONOCYTES ABSOLUTE MAN 0.21 K/uL (0.00-0.80); MONOCYTES PERCENT MAN 4 % (0-8); PLATELET COUNT,PLT 234 K/uL (150-400); SEG NEUTROPHILS ABSOLUTE MAN 3.04 K/uL (1.80-7.70); SEG NEUTROPHILS PERCENT MAN 57 % (41-71)
[2024-04-23 14:09] LABS: A/G RATIO 0.9 (0.9-1.6); ALBUMIN 3.3 g/dL (3.4-5.0); BILIRUBIN TOTAL 0.4 mg/dL (0.2-1.0); CALCIUM 8.6 mg/dL (8.5-10.1); CARBON DIOXIDE,CO2 28.7 mmol/L (21.0-32.0); CREATININE 1.1 mg/dL (0.6-1.0); EST CRCL DRUG DOSING (CG) 54.55 mL/min; PROTEIN TOTAL,TP 6.8 g/dL (6.4-8.2)
[2024-04-23 15:02] LABS: APPEARANCE,URINE CLEAR; BILIRUBIN,URINE NEGATIVE (NEGATIVE); COLOR,URINE YELLOW; GLUCOSE,URINE NEGATIVE (NEGATIVE); KETONES,URINE NEGATIVE (NEGATIVE); LEUKOCYTE ESTERASE,URINE NEGATIVE (NEGATIVE); NITRITE,URINE NEGATIVE (NEGATIVE); OCCULT BLOOD,URINE MODERATE (NEGATIVE); PH,URINE 7.5 (5.0-8.0); PROTEIN,URINE NEGATIVE (NEGATIVE); UROBILINOGEN,URINE 0.2 EU/dL (<2.0)
[2024-04-23 15:12] LABS: BACTERIA,URINE NOT SEEN (NEGATIVE); EPITHELIAL CELLS,URINE RARE (NONE-FEW); WBC,URINE 0-2 (0-5/HPF)
== END 2024-04-23 15:51 | disposition home or self-care (01) ==
LOC: MW.ED 12:22
DX: N83.202 Unspecified ovarian cyst, left side (principal); Z79.899 Other long term (current) drug therapy; Z75.8 Other problems related to medical facilities and other health care
CPT/HCPCS: 36415; 76830; 80053; 81001; 85025; 99284; A9270

== ENCOUNTER 2024-04-30 08:02 | Observation (INO) | payer BC ==
[~2024-04-30 08:02] MED LIST changes: +Bupivacaine 0.25% 30 ML SDV ONE; -Lactated Ringers 1,000 ML IV SCH; -Lidocaine 2% 100 MG/5 ML Syringe ONE; +Methylene Blue 50 MG/10 ML Ampule ONE; +Metoclopramide 10 MG/2 ML SDV IVPUSH PRN; +Naloxone 0.4 MG/ML SDV IVPUSH PRN; +Ondansetron 4 MG/2 ML SDV IVPUSH PRN; -Ondansetron 4 MG/2 ML SDV ONE; +Phenylephrine HCl In 0.9% NaCl 1 MG/10 ML Syringe IVPUSH PRN; -Propofol 200 MG/20 ML SDV ONE; +Sodium Chloride 0.9% 10 ML Syringe FLUSH PRN; +Sodium Chloride 0.9% 2.5 ML Syringe FLUSH PRN; +Sodium Chloride 0.9% 20 ML SDV IV PRN; -fentaNYL 100 MCG/2 ML SDV ONE; +fentaNYL 50 MCG/ML SDV IVPUSH PRN
[2024-04-30] MEDS ORDERED: Vasopressin 20 Units/1 ML MDV ONE (08:24)
[2024-04-30] MEDS ORDERED: propofoL 500 MG/50 ML 50 ML ONE (08:25)
[2024-04-30] MEDS ORDERED: Propofol 200 MG/20 ML SDV ONE ×3 (08:30→10:41)
[2024-04-30] MEDS ORDERED: Water For Injection, Sterile 20 ML ONE (08:31)
[2024-04-30] MEDS ORDERED: dexmedeTOMIDine HCl 200 MCG/2 ML SDV ONE (08:31)
[2024-04-30] MEDS ORDERED: fentaNYL 100 MCG/2 ML SDV ONE (08:31)
[2024-04-30] MEDS ORDERED: Ketamine HCL/NACL, ISO-OSM 50 MG/5 ML Syringe ONE (08:31)
[2024-04-30] MEDS ORDERED: Bupivacaine 0.25% 30 ML SDV ONE (08:38)
[2024-04-30] MEDS ORDERED: Ropivacaine 0.5% 5 MG/ML 30 ML SDV ONE (08:38)
[2024-04-30] MEDS: Lactated Ringers 1,000 ML IV SCH (09:18)
[2024-04-30] MEDS ORDERED: Rocuronium Bromide 50 MG/5 ML Syringe ONE (09:24)
[2024-04-30] MEDS ORDERED: ceFAZolin 1 GM Vial ONE (09:47)
[2024-04-30] MEDS ORDERED: Ondansetron 4 MG/2 ML SDV ONE (09:48)
[2024-04-30] MEDS ORDERED: Dexamethasone 4 MG/ML 5 ML MDV ONE (09:48)
[2024-04-30] MEDS ORDERED: Sugammadex Sodium 200 MG/2 ML VIAL IV ONE (10:33)
[2024-04-30] MEDS ORDERED: Ketorolac 30 MG/ML SDV ONE (10:33)
[2024-04-30] MEDS ORDERED: Acetaminophen/oxyCODONE 325-5 MG Tab PO PRN ×2 (11:13)
[2024-04-30] MEDS ORDERED: Ondansetron 4 MG/2 ML SDV IVPUSH PRN (11:13)
[2024-04-30] MEDS ORDERED: Promethazine 25 MG/ML SDV IM PRN (11:13)
[2024-04-30] MEDS ORDERED: Morphine 4 MG/ML Syringe IVPUSH PRN (11:13)
[2024-04-30] MEDS ORDERED: Sodium Chloride 0.9% 1,000 ML IV SCH (11:15)
[2024-04-30] MEDS: HYDROmorphone 1 MG/ML Syringe IVPUSH PRN (11:50)
[2024-04-30] MEDS: Albuterol 0.083% 2.5 MG/3 ML Neb Soln NEB PRN (12:20)
[2024-04-30] MEDS: Morphine 2 MG/ML SYRINGE IVPUSH PRN (14:06)
[2024-04-30] MEDS: ceFAZolin 1 GM in Sodium Chloride 0.9% 50 ML IV ONE (16:27)
[2024-04-30] MEDS: Ketorolac 30 MG/ML SDV IVPUSH ONE (16:27)
[2024-04-30] MEDS: Acetaminophen 1,000 MG in Premix Bag 1 BAG IV SCH (16:27)
[2024-04-30] MEDS: Ketorolac 30 MG/ML SDV IVPUSH SCH (18:07)
[2024-04-30] MEDS: Docusate Sodium 100 MG Cap PO SCH (20:12)
[2024-05-01 05:34] LABS: BASOPHILS ABSOLUTE AUTO 0.01 K/uL (0.00-0.20); BASOPHILS PERCENT AUTO 0.1 % (0.0-1.0); EOSINOPHILS ABSOLUTE AUTO 0.02 K/uL (0.00-0.45); EOSINOPHILS PERCENT AUTO 0.2 % (0.0-6.0); HEMATOCRIT 31.5 % (37.0-47.0); HEMOGLOBIN 11.2 g/dL (12.0-16.0); IMMATURE GRAN ABSOLUTE AUTO 0.05 K/uL (0.00-0.05); IMMATURE GRAN PERCENT AUTO 0.4 % (0.0-0.4); LYMPHOCYTES ABSOLUTE AUTO 1.22 K/uL (1.00-4.80); LYMPHOCYTES PERCENT AUTO 9.5 % (24.0-44.0); MEAN CORPUSCULAR HEMOGLOBIN 27.9 pg (28.0-32.0); MEAN CORPUSCULAR HGB CONC 35.6 g/dL (32.0-36.0); MEAN CORPUSCULAR VOLUME 78.6 fL (83.0-99.0); MEAN PLATELET VOLUME 12.2 fL (9.4-12.3); MONOCYTES ABSOLUTE AUTO 1.34 K/uL (0.00-0.80); MONOCYTES PERCENT AUTO 10.5 % (0.0-8.0); NEUTROPHILS ABSOLUTE AUTO 10.14 K/uL (1.80-7.70); NEUTROPHILS PERCENT AUTO 79.3 % (41.0-71.0); PLATELET COUNT,PLT 240 K/uL (150-400); RED BLOOD CELL COUNT 4.01 M/uL (4.10-5.30); WHITE BLOOD CELL COUNT,WBC 12.78 K/uL (3.9-11.3)
[2024-05-01 05:55] LABS: CALCIUM 8.2 mg/dL (8.5-10.1); CARBON DIOXIDE,CO2 24.2 mmol/L (21.0-32.0); CREATININE 1.1 mg/dL (0.6-1.0); EST CRCL DRUG DOSING (CG) 54.55 mL/min; POTASSIUM,K 3.7 mmol/L (3.5-5.1)
[2024-05-01 12:17] VITALS: BP 102/62; PULSE 90
== END 2024-05-01 13:45 | disposition home or self-care (01) ==
LOC: MW.SDS 08:02 → MW.MS 11:13
PROVIDERS: ADMIT Obstetrics & Gynecology; ATTEND Obstetrics & Gynecology
DX: D25.1 Intramural leiomyoma of uterus (principal); D25.2 Subserosal leiomyoma of uterus; N83.202 Unspecified ovarian cyst, left side; R10.2 Pelvic and perineal pain; N73.6 Female pelvic peritoneal adhesions (postinfective); E66.9 Obesity, unspecified; Z79.899 Other long term (current) drug therapy; Z68.28 Body mass index [BMI] 28.0-28.9, adult; Z98.890 Other specified postprocedural states
CPT/HCPCS: 36415; 58140; 58805; 64488; 80048; 85025; 94640; 96374; 96376; A9270; G0378; J0131; J0665; J0690; J1100; J1171; J1885; J2270; J2704; J2795; J3010; J3490; J7120; 00840; J2405; J7620-GY

== ENCOUNTER 2024-06-10 14:02 | Emergency (ER) | payer BC ==
[2024-06-10] MEDS ORDERED: Sodium Chloride 0.9% 10 ML Syringe FLUSH PRN (14:53)
[2024-06-10 15:17] LABS: BASOPHILS ABSOLUTE AUTO 0.01 K/uL (0.00-0.20); BASOPHILS PERCENT AUTO 0.1 % (0.0-1.0); EOSINOPHILS ABSOLUTE AUTO 0.04 K/uL (0.00-0.45); EOSINOPHILS PERCENT AUTO 0.6 % (0.0-6.0); HEMATOCRIT 36.2 % (37.0-47.0); HEMOGLOBIN 13.2 g/dL (12.0-16.0); IMMATURE GRAN ABSOLUTE AUTO 0.01 K/uL (0.00-0.05); IMMATURE GRAN PERCENT AUTO 0.1 % (0.0-0.4); LYMPHOCYTES ABSOLUTE AUTO 2.13 K/uL (1.00-4.80); MEAN CORPUSCULAR HEMOGLOBIN 28.5 pg (28.0-32.0); MEAN CORPUSCULAR HGB CONC 36.5 g/dL (32.0-36.0); MEAN CORPUSCULAR VOLUME 78.2 fL (83.0-99.0); MEAN PLATELET VOLUME 11.6 fL (9.4-12.3); MONOCYTES ABSOLUTE AUTO 0.51 K/uL (0.00-0.80); MONOCYTES PERCENT AUTO 7.2 % (0.0-8.0); NEUTROPHILS ABSOLUTE AUTO 4.41 K/uL (1.80-7.70); PLATELET COUNT,PLT 282 K/uL (150-400); RED BLOOD CELL COUNT 4.63 M/uL (4.10-5.30); WHITE BLOOD CELL COUNT,WBC 7.11 K/uL (3.9-11.3)
[2024-06-10 15:35] LABS: APPEARANCE,URINE CLEAR; BILIRUBIN,URINE NEGATIVE (NEGATIVE); COLOR,URINE YELLOW; GLUCOSE,URINE NEGATIVE (NEGATIVE); KETONES,URINE NEGATIVE (NEGATIVE); LEUKOCYTE ESTERASE,URINE NEGATIVE (NEGATIVE); NITRITE,URINE NEGATIVE (NEGATIVE); OCCULT BLOOD,URINE NEGATIVE (NEGATIVE); PROTEIN,URINE NEGATIVE (NEGATIVE); UROBILINOGEN,URINE 0.2 EU/dL (<2.0)
[2024-06-10] MEDS ORDERED: Morphine 4 MG/ML Syringe IVPUSH PRN (15:36)
[2024-06-10 15:45] LABS: BILIRUBIN TOTAL 0.6 mg/dL (0.2-1.0); CALCIUM 9.4 mg/dL (8.5-10.1); CARBON DIOXIDE,CO2 26.5 mmol/L (21.0-32.0); POTASSIUM,K 3.7 mmol/L (3.5-5.1); PROTEIN TOTAL,TP 7.9 g/dL (6.4-8.2)
[2024-06-10] MEDS: Sodium Chloride 0.9% 1,000 ML IV ONE (16:20)
[2024-06-10] MEDS: Ketorolac 30 MG/ML SDV IVPUSH ONE (16:20)
[2024-06-10] MEDS: Ondansetron 4 MG/2 ML SDV IVPUSH ONE (16:21)
[2024-06-10 17:33] VITALS: BP 98/64; PULSE 68
== END 2024-06-10 17:32 | disposition home or self-care (01) ==
LOC: MW.ED 14:02
DX: N83.202 Unspecified ovarian cyst, left side (principal); D25.9 Leiomyoma of uterus, unspecified; Z79.899 Other long term (current) drug therapy
CPT/HCPCS: 36415; 76830; 80053; 81003; 83605; 83690; 84703; 85025; 96361; 96374; 96375; 99284; J1885; J2405; J7030